=== PATIENT | male | born 1990 | race Caucasian/White ===

== ENCOUNTER 2017-08-19 11:13 | Emergency (ER) | payer OTHER ==
[~2017-08-19] VITALS: Ht 190.5 cm; Wt 117.9 kg
[~2017-08-19 11:13] MED LIST: ALBU90OI INH; CEPH500 PO; CIPR500 PO; CRUTCH4 USE; DIAZ5; DOCU100 PO; DOXY100 PO; GUAI600T33 PO; HEMOTC PR; HYDACE5; IBUP800 PO; Keflex500 MG PO; OXYACE5T PO; OXYACE7.5T; PENVK500 PO; PHENA200 PO; PRED10 PO; PRED20 PO; PROM25 PO; Permethrin60 GM TP; RXTRAM50 PO; SULTRIDS PO; TRAM50 PO; Ultram50 MG PO
[2017-08-19] MEDS ORDERED: ROBITUSSIN COU237 ML PO (12:19)
== END 2017-08-19 12:37 | disposition home or self-care (01) ==
LOC: ER 11:13
DX: J02.9 Acute pharyngitis, unspecified (principal); Z88.5 Allergy status to narcotic agent; F17.200 Nicotine dependence, unspecified, uncomplicated
CPT/HCPCS: 87081; 87430; 99283

== ENCOUNTER 2017-11-25 15:14 | Emergency (ER) | payer OTHER ==
[~2017-11-25] VITALS: Ht 190.5 cm; Wt 122.5 kg
[~2017-11-25 15:14] MED LIST changes: +ROBITUSSIN COU237 ML PO
== END 2017-11-25 16:22 | disposition home or self-care (01) ==
LOC: ER 15:14
DX: Z00.00 Encounter for general adult medical examination without abnormal findings (principal); F17.200 Nicotine dependence, unspecified, uncomplicated; Z88.5 Allergy status to narcotic agent
CPT/HCPCS: 99282

== ENCOUNTER 2018-05-11 15:04 | Emergency (ER) | payer MEDICARE, OTHER ==
[~2018-05-11] VITALS: Ht 190.5 cm; Wt 117.9 kg
== END 2018-05-11 16:40 | disposition home or self-care (01) ==
LOC: ER 15:04
DX: S70.361A Insect bite (nonvenomous), right thigh, initial encounter (principal); W57.XXXA Bitten or stung by nonvenomous insect and other nonvenomous arthropods, initial encounter; Z88.5 Allergy status to narcotic agent; F17.200 Nicotine dependence, unspecified, uncomplicated
CPT/HCPCS: 99282

== ENCOUNTER 2019-05-04 09:52 | Emergency (ER) | payer MEDICARE, OTHER ==
[~2019-05-04] VITALS: Ht 190.5 cm; Wt 138.8 kg
[2019-05-04] MEDS ORDERED: Veetids 500500 MG PO (11:56)
== END 2019-05-04 12:06 | disposition home or self-care (01) ==
LOC: ER 09:52
DX: K04.7 Periapical abscess without sinus (principal); Z88.5 Allergy status to narcotic agent; Z87.891 Personal history of nicotine dependence
CPT/HCPCS: 99282

== ENCOUNTER → 2022-06-02 | Outpatient (CLI) | payer MEDICARE, OTHER ==
[~2022-06-02] MED LIST changes: +Veetids 500500 MG PO
[2022-06-02 19:25] LABS: Alanine Aminotransfer (ALT/SGP 49 U/L (12-78); Albumin, Blood 4.1 g/dL (3.4-5.0); Albumin/Globulin Ratio 1.4 (0.8-1.8); Alk Phos 74 U/L (50-136); Anion Gap 6 mmol/L (6-16); Aspartate Aminotrans (AST/SGOT 21 U/L (12-37); Bilirubin, Total 0.4 mg/dL (0.1-1.0); Blood Urea Nitrogen 11 mg/dL (8-24); Bun/Creatinine Ratio 13.5 (12.0-20.0); CO2, Blood 26 mmol/L (21-32); Calcium, Blood 9.5 mg/dL (8.5-10.1); Chloride, Blood 109 mmol/L (98-108); Creatinine, Blood 0.81 mg/dL (0.60-1.20); Glomerular Filtration Rate 119 (60-); Glucose, Blood 107 mg/dL (70-99); Potassium, Blood 4.1 mmol/L (3.5-5.5); Sodium, Blood 141 mmol/L (136-145); Total Protein, Blood 7.1 g/dL (6.4-8.2)
[2022-06-03 08:10] LABS: HIV AB/P24 AG SCREEN Non Reactive (Non Reactive)
[2022-06-03 12:31] LABS: BASOPHILS ABSOLUTE AUTO 0.05 K/mm3 (0.00-0.23); BASOPHILS PERCENT AUTO 1 % (0-2); EOSINOPHILS ABSOLUTE AUTO 0.13 K/mm3 (0.00-0.68); EOSINOPHILS PERCENT AUTO 3 % (0-6); Hematocrit 48.7 % (37.0-53.0); Hemoglobin 16.4 g/dL (13.5-17.5); IMMATURE GRAN ABSOLUTE AUTO 0.01 K/mm3 (0.00-0.10); IMMATURE GRAN PERCENT AUTO 0 % (0-1); LYMPHOCYTES ABSOLUTE AUTO 1.54 K/mm3 (0.84-5.20); LYMPHOCYTES PERCENT AUTO 30 % (21-46); MONOCYTES ABSOLUTE AUTO 0.44 K/mm3 (0.16-1.47); MONOCYTES PERCENT AUTO 9 % (4-13); Mean Corpuscular HGB 29.7 pg (26.0-34.0); Mean Corpuscular HGB Conc 33.7 g/dL (31.5-36.5); Mean Corpuscular Volume 88 fL (80-100); Mean Platelet Volume 12.3 fL (9.1-12.4); NEUTROPHILS ABSOLUTE AUTO 3.03 K/mm3 (1.96-9.15); NEUTROPHILS PERCENT AUTO 58 % (41-73); Platelet Count 167 K/mm3 (150-400); RDW Coefficient Variation 11.6 % (11.7-14.2); RDW Standard Deviation 37.2 fL (35.1-46.3); Red Blood Cell Count 5.52 M/mm3 (4.30-5.90)
[2022-06-03 12:32] LABS: CHOL/HDL RATIO 4.6; Cholesterol 151 mg/dL (50-200); HDL Cholesterol 33 mg/dL (>39); LDL/HDL RATIO 2.3; Low Density Lipoprotein Chol 76 mg/dL (0-110); Triglycerides 211 mg/dL (30-140); Very Low Density Lipoprot Chol 42 mg/dL (6-28)
== END | disposition home or self-care (01) ==
LOC: LAB SHORT 14:15
PROVIDERS: Student in an Organized Health Care Education/Training Program
DX: Z11.59 Encounter for screening for other viral diseases (principal); Z13.6 Encounter for screening for cardiovascular disorders; Z68.35 Body mass index [BMI] 35.0-35.9, adult
CPT/HCPCS: 80053; 80061; 84443; 85025; 86803; 87389

== ENCOUNTER 2022-09-22 13:50 | Emergency (ER) | payer OTHER ==
[~2022-09-22] VITALS: Ht 190.5 cm; Wt 129.3 kg
[2022-09-22 14:27] VITALS: BP 155/82
== END 2022-09-22 15:43 | disposition home or self-care (01) ==
LOC: ER 13:50
DX: S39.92XA Unspecified injury of lower back, initial encounter (principal); W22.8XXA Striking against or struck by other objects, initial encounter; Z88.5 Allergy status to narcotic agent; Z87.891 Personal history of nicotine dependence
CPT/HCPCS: 72220; 99283-25

== ENCOUNTER 2023-05-23 17:29 | Emergency (ER) | payer OTHER ==
[~2023-05-23] VITALS: Ht 190.5 cm; Wt 136.1 kg
[2023-05-23 17:38] VITALS: BP 159/90
[2023-05-23 19:06] LABS: Source, Urine Clean Catch
[2023-05-23 19:16] LABS: Appearance, Urine Cloudy (Clear); Bilirubin, Urine Neg (Neg); Blood, Urine 4+ (Neg); Color, Urine Yellow (P-Yellow); Glucose Qualitative, Urine Neg (Neg); Ketones, Urine Neg (Neg); Leukocyte Esterase, Urine 3+ (Neg); Nitrite, Urine Neg (Neg); Protein, Urine 2+ (Neg); Specific Gravity, Urine 1.015 (1.003-1.022); Urobilinogen, Urine 2+ (Normal)
[2023-05-23 19:25] LABS: Bacteria Many /hpf; Squamous Epithelial Cells Rare /hpf (Few); White Blood Cells, Urine 25-50 /hpf (0-5)
[2023-05-23] MEDS ORDERED: Cephalexin Monohydrate 500 MG Cap PO ONE (19:25)
[2023-05-23] MEDS ORDERED: CEPH500 PO (19:26)
[2023-05-24] MEDS ORDERED: CEPH500 PO (12:26)
== END 2023-05-23 19:32 | disposition home or self-care (01) ==
LOC: ER 17:29
PROVIDERS: Student in an Organized Health Care Education/Training Program
DX: N39.0 Urinary tract infection, site not specified (principal); Z88.5 Allergy status to narcotic agent; Z87.891 Personal history of nicotine dependence
CPT/HCPCS: 81001; 87077; 87086; 87186; 99283; A9270

== ENCOUNTER → 2024-05-05 | Outpatient (CLI) | payer OTHER ==
[2024-05-05 16:15] LABS: BASOPHILS ABSOLUTE AUTO 0.05 K/mm3 (0.00-0.23); BASOPHILS PERCENT AUTO 1 % (0-2); EOSINOPHILS ABSOLUTE AUTO 0.09 K/mm3 (0.00-0.68); EOSINOPHILS PERCENT AUTO 2 % (0-6); Hematocrit 45.4 % (37.0-53.0); Hemoglobin 15.8 g/dL (13.5-17.5); IMMATURE GRAN ABSOLUTE AUTO 0.01 K/mm3 (0.00-0.10); IMMATURE GRAN PERCENT AUTO 0 % (0-1); LYMPHOCYTES ABSOLUTE AUTO 1.43 K/mm3 (0.84-5.20); LYMPHOCYTES PERCENT AUTO 28 % (21-46); MONOCYTES ABSOLUTE AUTO 0.54 K/mm3 (0.16-1.47); MONOCYTES PERCENT AUTO 11 % (4-13); Mean Corpuscular HGB 30.3 pg (26.0-34.0); Mean Corpuscular HGB Conc 34.8 g/dL (31.5-36.5); Mean Corpuscular Volume 87 fL (80-100); Mean Platelet Volume 12.1 fL (9.1-12.4); NEUTROPHILS ABSOLUTE AUTO 2.92 K/mm3 (1.96-9.15); NEUTROPHILS PERCENT AUTO 58 % (41-73); Platelet Count 132 K/mm3 (150-400); RDW Coefficient Variation 11.8 % (11.7-14.2); RDW Standard Deviation 37.7 fL (35.1-46.3); Red Blood Cell Count 5.22 M/mm3 (4.30-5.90); White Blood Cell Count 5.04 K/mm3 (4.00-11.30)
[2024-05-05 16:17] LABS: Bacteria Few /hpf; Red Blood Cells, Urine 0-2 /hpf (0-2); Squamous Epithelial Cells Rare /hpf (Few)
[2024-05-05 16:21] LABS: Albumin, Blood 3.8 g/dL (3.4-5.0); Albumin/Globulin Ratio 1.2 (0.8-1.8); Bilirubin, Total 0.2 mg/dL (0.1-1.0); Bun/Creatinine Ratio 16.7 (12.0-20.0); Calcium, Blood 8.9 mg/dL (8.5-10.1); Creatinine, Blood 0.72 mg/dL (0.60-1.20); Globulin, Blood 3.2 g/dL (2.2-4.0); Potassium, Blood 3.9 mmol/L (3.5-5.5)
[2024-05-08 06:05] LABS: APTIMA MEDIA TYPE Urine; C. TRACHOMATIS BY TMA Negative (Negative); N. GONORRHOEAE BY TMA Negative (Negative); SPECIMEN SOURCE Urine
== END ==
LOC: LAB 14:27 → LAB SHORT 14:27
PROVIDERS: Student in an Organized Health Care Education/Training Program
DX: Z11.3 Encounter for screening for infections with a predominantly sexual mode of transmission (principal); R35.89 Other polyuria; Z87.448 Personal history of other diseases of urinary system
CPT/HCPCS: 80053; 81015; 85025; 86592; 87491; 87591